=== PATIENT | male | born 1955 | race Caucasian/White ===

== ENCOUNTER 2024-04-05 09:44 | Outpatient (CLI) | payer MEDICARE | END 2024-04-05 09:45 | disposition home or self-care (01) | LOC: CSHCT 09:44 | PROVIDERS: ATTEND Internal Medicine Gastroenterology | DX: R11.0 Nausea (principal); R10.33 Periumbilical pain; K92.1 Melena; K59.03 Drug induced constipation; T40.2X5A Adverse effect of other opioids, initial encounter | CPT/HCPCS: 74177; 82565 ==